=== PATIENT | male | born 1980 | race Caucasian/White ===

== ENCOUNTER → 2018-02-07 15:45 | Outpatient (CLI) | payer OTHER, SELFPAY ==
--- NOTE | 2018-02-07 15:50 | RAD_ITS ---
STUDY: X-RAY - LEFT WRIST REASON FOR EXAM: Male, 37 years old. Pain TECHNIQUE: 3 view(s) of the wrist were obtained. COMPARISON: None. FINDINGS: Normal visualized distal radius and ulna. Normal radiocarpal articulation. Normal distal radioulnar articulation. Normal carpal bones. Normal carpal articulations. Normal carpometacarpal articulation of the thumb. Normal second through fifth carpometacarpal articulations. Normal visualized metacarpal bones. The soft tissue structures are unremarkable. RAD/Wrist min 3 Views IMPRESSION: Normal x-ray examination of the wrist. No fracture Electronically Signed: Derick Matos MD at 7:28 EDT Tel , Service support ,
--- NOTE | 2018-02-07 15:50 | RAD_ITS ---
STUDY: X-RAY - RIGHT WRIST REASON FOR EXAM: Male, 37 years old. Pain TECHNIQUE: 3 view(s) of the wrist were obtained. COMPARISON: None. FINDINGS: Normal visualized distal radius and ulna. Normal radiocarpal articulation. Normal distal radioulnar articulation. Normal carpal bones. Normal carpal articulations. Normal carpometacarpal articulation of the thumb. Normal second through fifth carpometacarpal articulations. Normal visualized metacarpal bones. The soft tissue structures are unremarkable. RAD/Wrist min 3 Views IMPRESSION: Normal x-ray examination of the wrist. No fractures Electronically Signed: Derick Matos MD at 7:28 EDT Tel , Service support ,
== END ==
PROVIDERS: Family Provider Family Medicine; PCP Family Medicine; Referring Provider Family Medicine; Visit Provider Family Medicine
DX: M25.531 Pain in right wrist (principal); M25.532 Pain in left wrist
CPT/HCPCS: 73110

== ENCOUNTER → 2018-02-25 07:24 | Outpatient (CLI) | payer OTHER, SELFPAY ==
--- NOTE | 2018-02-25 10:20 | NEURO ---
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 He is healthy otherwise. Bilateral upper extremity sensory and motor nerve conduction studies along with F waves are obtained demonstrating prolongation of the median motor and sensory distal latencies with mild reduction of the amplitude on the left side and preservation of conduction velocities bilaterally. The median and ulnar F-wave latencies bilaterally are prolonged. Impression: Abnormal electrophysiologic study of the upper extremities consistent with moderate carpal tunnel syndrome relatively symmetrically by electrical criteria.
== END ==
PROVIDERS: Family Provider Family Medicine; PCP Family Medicine; Referring Provider Family Medicine; Visit Provider Family Medicine
DX: M25.531 Pain in right wrist (principal); M25.532 Pain in left wrist; R20.2 Paresthesia of skin
CPT/HCPCS: 95911

== ENCOUNTER 2018-04-04 10:08 | Day surgery (SDC) | payer OTHER, SELFPAY ==
[2018-03-20 14:19] VITALS: BMI 31.6
[2018-04-04] VITALS (7 sets, daily range): BP systolic 128–137; BP diastolic 74–88; PULSE 70–79; RESP 16; TEMP 36.2–36.9; O2SAT 92–97; BMI 34.5
--- NOTE | 2018-04-04 11:41 | DCINST_ITS ---
Discharge Diet: No Restrictions - Keep dressing clean dry and intact, if gets wet change dressing, may use hand as tolerated, follow-up in 2 weeks, call with concerns Discharge Activity: May Not Drive May shower in (days): 1 Ice area for (Minutes): 20 - Every hour while awake. Weight Bearing Status: Weight bearing as tolerated Keep extremity elevated above heart level: Operative Extremity Call your doctor if your incision/area has: Continuous Slow Oozing, Sudden Increased Bleeding, Increased Pain/ Swelling, Increased Redness, Foul Smelling Discharge Call your doctor if you observe: Fever of 101 or Higher, Coldness, Increased Pain, Numbness or Tingling, Change in Color, Calf discomfort Allergies/Adverse Reactions: Allergies No Known Allergies Allergy (Verified 03/31/18 09:19) Medications to take at Discharge Acetaminophen/Codeine #3 [Tylenol #3 Tablet] 1 - 2 tablet PO Q6H PRN PRN #30 tablet 04/04/18 The following prescriptions were given: Acetaminophen/Codeine #3 [Tylenol #3 Tablet] 1 - 2 tablet PO Q6H PRN PRN #30 tablet PRN Reason: Pain Primary Care Physician: Boris Tran DO [Primary Care Provider] - Test Results: Test results from this visit will be discussed in further detail at your follow- up appointment, if applicable. Please Follow Up With: Minerva Avila DO - [phone]
--- NOTE | 2018-04-04 11:41 | PCM.OPRPT ---
Report of Operation Date of Procedure: 04/04/18 Pre-Operative Diagnosis: bilateral carpal tunnel syndrome Post-Operative Diagnosis: same Surgery/Procedure Performed:: right carpal tunnel release, left carpal tunnel injection Type of Anesthesia:: Jannet Nice, Local Anesthesiologist: Abram Billings Estimated Blood Loss (mL): minimal Fluids Replaced: 500ml lr Description of Procedure: Preoperative note Patient is a 37 year old patient with nerve conduction study confirming carpal tunnel syndrome. Patient failed conservative treatment for bilateral carpal tunnel elected proceed with right carpal tunnel release, left carpal tunnel injection. Risks benefits and alternatives surgery discussed with patient. Risks including but not limited to blood loss, blood clot, infection, neurovascular injury, failure procedure, loss of life and loss of limb. Patient is aware like proceed with right carpal tunnel release. Operative note Patient seen and examined preoperative holding area. right hand was marked. History and physical and consent reviewed. Patient was brought to the operating room placed supine on the operating table. Sign in, anesthesia, antibiotics were administered. right upper extremity was prepped and draped after [place] block was initiated. All bony prominences well-padded SCDs placed on bilateral lower extremities. We marked out our incisions for our carpal tunnel release at the intersection of João's line in the fourth ray flexed. We extended about a centimeter and a half. Timeout was performed. We then checked ensure that the [place] block was working with pickups which it was not so we performed a local block of 10cc 1% lidocaine. We then used a 15 blade to make a skin incision. We then dissected down tenotomy syllable of the transverse carpal ligament. We then used a new 15 blade cut through the transverse carpal ligament down to the level of the median nerve. We then further released the median nerve the combination of the 15 blade and tenotomies. The nerve was grayish in color and adherent to the transverse carpal ligament volarly. We released the transverse carpal ligament distally to the fat pad and then proximally under standard technique. We then palpated to ensure that we released all of the transverse carpal ligament which we did. We irrigated the incision with copious amounts of sterile saline. All bleeders were coagulated. The incision was closed with interrupted 4-0 nylon stitches. Tourniquet was deflated for total working time of 10 minutes. We then moved to the left hand and under sterile conditions injected the left carpal tunnel. Patient tolerated procedure well there were no complications. Patient transferred to recovery room in stable condition. Postoperative note Hospital pharmacy has prescription Leave dressing clean dry and intact Follow-up in 2 weeks Call with concerns This note was generated with [employer] dictation software. It may contain incorrect words, spelling, and punctuation that were not noted in checking the note before signing
[2018-04-04] MEDS: Cefazolin 2 GM in 0.9% Normal Saline 100 ML IV (12:35)
[2018-04-04] MEDS: Mupirocin Ointment 22gm Tube 1 APPLIC (13:12)
[2018-04-04] MEDS: Triamcinolone Acetonide 40 MG/ML Vial (13:19)
[2018-04-04] MEDS: Ropivacaine 0.5% 30 ML Vial (13:20)
== END 2018-04-04 14:15 | disposition home or self-care (01) ==
LOC: SDC 10:09 → AC 10:12
PROVIDERS: Family Provider Family Medicine; PCP Family Medicine; Referring Provider Orthopaedic Surgery; Visit Provider Orthopaedic Surgery
PROC: (CPT 64721; principal; 2018-04-04 11:35)
DX: G56.03 Carpal tunnel syndrome, bilateral upper limbs (principal)
CPT/HCPCS: 20526; 64721; J7120